=== PATIENT | male | born 1985 | race Caucasian/White ===

== ENCOUNTER 2023-11-10 19:22 | Emergency (ER) | payer BC, SELFPAY ==
[2023-11-10 19:29] VITALS: BP 156/94
[2023-11-10 20:16] LABS: % Basophils 0.6 % (0-2); % Eosinophils 1.7 % (0-6); % Immature Granulocytes 0.5 % (0-0.5); % Lymphocytes 20.6 % (20.5-51.1); % Neutrophils 69.6 % (42.2-75.2); Absolute Basophils 0.1 10^3/uL (0-0.2); Absolute Eosinophils 0.2 10^3/uL (0-0.7); Absolute Immature Granulocytes 0.1 10^3/uL (0-0.05); Absolute Lymphocytes 2.2 10^3/uL (1.2-3.4); Absolute Monocytes 0.8 10^3/uL (0.1-0.6); Absolute Neutrophils 7.5 10^3/uL (1.4-6.5); Hematocrit 41.7 % (39.0-52.0); Hemoglobin 15.4 g/dL (13.0-18.0); Mean Corp Hgb Conc. 36.9 g/dL (33.0-37.0); Mean Corpuscular Hgb 31.7 pg (27.0-31.0); Mean Corpuscular Volume 85.8 fL (80.0-94.0); Mean Platelet Volume 9.9 fL (7.4-10.4); Nucleated Red Blood Cells % 0 % (-); Platelet Count 208 10^3/uL (130-400); Red Blood Cell Count 4.86 10^6/uL (4.70-6.10); Red Cell Dist. Width 12.6 % (11.5-14.5); White Blood Cell Count 10.7 10^3/uL (4.8-10.8)
[2023-11-10 20:36] LABS: ALT (SGPT) 45 U/L (0-50); AST (SGOT) 36 U/L (17-59); Albumin 4.8 g/dl (3.5-5.0); Alkaline Phosphatase 99 U/L (38-126); Blood Urea Nitrogen 15 mg/dl (9-20); Calcium 9.6 mg/dl (8.4-10.2); Carbon Dioxide 27 mmol/L (22-30); Chloride 101 mmol/L (98-107); Glucose 121 mg/dl (70-99); Potassium 3.8 mmol/L (3.5-5.1); Sodium 137 mmol/L (135-145); Total Bilirubin 0.9 mg/dl (0.2-1.3); Total Protein 7.4 g/dl (6.3-8.2); eGFR > 60.00
[2023-11-10] MEDS: TORADOL 15 MG IV (21:03)
[2023-11-10 21:38] LABS: Urine Albumin Negative (Neg - Trace); Urine Bilirubin Negative (Negative); Urine Character Clear (Clear); Urine Color Yellow; Urine Glucose Negative (Negative); Urine Ketone Negative (Negative); Urine Leukocyte Negative (Negative); Urine Nitrite Negative (Negative); Urine Occult Blood 3+ (Negative); Urine Urobilinogen Negative (Neg - 1+)
[2023-11-10 21:47] LABS: Urine Bacteria Few (Negative); Urine White Cell 0-2 /HPF (0-5)
--- NOTE | 2023-11-10 21:52 | EDRN ---
Patient reports pain is better, MICHELE Mccrary at bedside, waiting on CT
--- NOTE | 2023-11-10 21:55 | ED.GENMED ---
History of Present Illness
General
Chief Complaint: Flank Pain
Time Seen by Provider: 11/10/23 20:58
History of Present Illness
History of Present Illness:
37-year-old male with history of frequent kidney stones presents the emergency department for evaluation of left flank pain that began yesterday and gradually worsened throughout the day today. States he typically passes stones on his own without
medication assistance however pain was not resolving prompting to come to ER. Denies any fevers or chills. Has never required any interventions and he estimates that he has passed at least 50 kidney stones in his lifetime
Past History
Past History
ED Past Medical History: Hypercholesterolemia and Other (Kidney stone)
ED Past Surgical History: Urological
Social History
Tobacco: Non-smoker
Alcohol: Other
Personal: Single
Living: with family
Employment: Employed
Family History
Family History: Other (Noncontributory)
Review of Systems
Review of Systems
Allergies reviewed?: Yes
All Other Systems: ROS reviewed and negative except as documented in HPI and ROS
Phy Exam
Physical Exam
Physical Exam:
GEN: Well appearing, NAD, WDWN
HEENT: Oral mucosa moist, no scleral icterus
Cardiac: Regular rate
Lung: No respiratory distress, no tachypnea
Abdomen: Soft, nontender
MSK: No gross deformity or injuries
Skin: Good color, no pallor or jaundice, no rashes
Neuro: AO x3, moves all extremities freely
Psych: Calm, cooperative
Course
Orders/Labs/Results
Orders:
Orders
11/10/23 19:49
CMP [Comprehensive Metabolic Panel] Urgent
Complete Blood Count/With Diff Urgent
11/10/23 20:58
Ketorolac [Toradol] 15 mg .ROUTE .STK-MED ONE
Ketorolac [Toradol] 15 mg IV NOW STA
11/10/23 21:27
Urinalysis Urgent
Date Specimen was Collected: 11/10/23
Time Specimen was Collected: 19:35
Urine Microscopic Urgent
Date Specimen was Collected: 11/10/23
Time Specimen was Collected: 19:35
11/10/23 21:55
Tamsulosin [Flomax] 0.4 mg PO NOW STA
11/10/23 21:58
Diclofenac [Voltaren] 75 mg PO NOW STA
Abnormal Lab Results
11/10/23 11/10/23
19:49 21:27
MCH 31.7 H pg
(27.0-31.0)
Abs Immat Gran (auto) 0.1 H 10^3/uL
(0-0.05)
Absolute Neuts (auto) 7.5 H 10^3/uL
(1.4-6.5)
Absolute Monos (auto) 0.8 H 10^3/uL
(0.1-0.6)
Glucose 121 H mg/dl
(70-99)
Urine Occult Blood 3+ A
(Negative)
Urine RBC 7-10 A /HPF
(0-2)
Urine Bacteria Few A
(Negative)
11/10/23 19:49
11/10/23 19:49
Vital Signs
Initial and Last Documented VS:
Initial Vital Signs
Temp Pulse Resp BP Pulse Ox
97.9 F 94 18 156/94 96
11/10/23 19:29 11/10/23 19:29 11/10/23 19:29 11/10/23 19:29 11/10/23 19:29
Last Documented Vital Signs
Temp Pulse Resp BP Pulse Ox
97.9 F 94 18 156/94 96
11/10/23 19:29 11/10/23 19:29 11/10/23 19:29 11/10/23 19:29 11/10/23 19:29
MDM/Problems Addressed
MDM/Problems Addressed:
Discussed the options with the patient including imaging versus withholding imaging given that he has never required intervention and appears quite comfortable after 1 dose of Toradol. He is comfortable with avoiding the radiation at this time
which I find to be reasonable given his normal labs. Urinalysis is not consistent with infection. Will treat supportively with NSAIDs and Flomax, discussed ED return parameters
*Critical Care Note
Total Time (30-74mins, 75-104mins- exclusive of procedures): Not Applicable
ED Attending Note
-
Portions of this chart may have been created with voice recognition software.� Occasional wrong word or��sound alike� substitutions may have occurred due to the inherent limitations of voice recognition software.
Discharge Plan
Departure
Patient Disposition: Home (Routine Discharge)
Date of Disposition: 11/10/23
Time of Disposition: 21:55
Patient with high blood pressure during this ER visit?: No
Discharge Problem:
Calculus of left kidney
Instructions: Kidney Stones (DC)
Prescriptions:
New
tamsulosin [Flomax] 0.4 mg capsule
0.4 mg PO HS Qty: 20 0RF
ketorolac 10 mg tablet
10 mg PO Q8H PRN (Reason: Pain) Qty: 15 0RF
Rx Instructions:
maximum total duration of 5 days from all oral, intranasal, or parenteral formulations
No Action
docosahexaenoic acid-epa 1 CAP capsule
1 cap PO DAILY
Niacin
1 tab PO DAILY
tamsulosin 0.4 MG capsule
0.4 mg PO DAILY Qty: 7 0RF
tamsulosin 0.4 MG capsule
0.4 mg PO DAILY Qty: 7 0RF
ondansetron 4 MG tablet,disintegrating
4 mg PO TIDPRN PRN (Reason: nausea/vomiting) Qty: 12 0RF
hydrocodone-acetaminophen [Vicodin] 1 EACH tablet
1 ea PO Q6HPRN PRN (Reason: Pain) Qty: 12 0RF
hydrocodone-acetaminophen 1 TABLET tablet
1 tab PO Q4HPRN PRN (Reason: breakthrough pain) Qty: 10 0RF
tamsulosin 0.4 MG capsule
0.4 mg PO DAILY Qty: 7 0RF
diclofenac sodium 75 MG tablet,delayed release (DR/EC)
75 mg PO BID Qty: 20 0RF
hydrocodone-acetaminophen [[place]] 1 EACH tablet
1 ea PO Q4HPRN PRN (Reason: pain) Qty: 12 0RF
tamsulosin 0.4 MG capsule
0.4 mg PO DAILY Qty: 10 0RF
Referrals:
José Antonio Caldera MD [Family Provider] -
Activity Restrictions/Additional Instructions:
Return if symptoms worsen or you develop a fever
Interventions
Interventions:
*Risk Screen - Suicide Last Done: 11/10/23 19:29
*General Assessment Last Done: 11/10/23 22:05
*Neglect/Abuse Screening Last Done: 11/10/23 19:29
ED- Fall Risk Assessment Last Done: 11/10/23 20:50
*ED COVID-19 Vaccine History Last Done: 11/10/23 22:05
*Nursing Disposition Last Done: 11/10/23 22:05
XO-Ulpunu-Mzjmpktcyk Assessment Last Done: 11/10/23 20:50
ED-Male Genitourinary Assessment Last Done: 11/10/23 20:50
Discharge Date and Time
Discharge Date/Time: 11/10/23 22:05
Print Language: PERSIAN
[2023-11-10] MEDS: FLOMAX 0.4 MG PO (21:59)
[2023-11-10] MEDS: VOLTAREN 75 MG PO (22:02)
== END 2023-11-10 22:05 | disposition home or self-care (01) ==
LOC: EMR 19:22
PROVIDERS: Student in an Organized Health Care Education/Training Program; EMERGENCY PHYSICIAN Emergency Medicine; FAMILY PHYSICIAN Family Medicine
DX: N20.0 Calculus of kidney (principal); E78.00 Pure hypercholesterolemia, unspecified; Z87.442 Personal history of urinary calculi; Z91.048 Other nonmedicinal substance allergy status
CPT/HCPCS: 99284; 96374; 80053; 81003; 81015; 85025

== ENCOUNTER 2024-08-01 00:31 | Emergency (ER) | payer BC, SELFPAY ==
[2024-08-01 00:34] VITALS: BP 158/64
--- NOTE | 2024-08-01 00:54 | EDRN ---
Pt says he has a kidney stone on R stone 'I've had like 100 and some.' Pain started 1.5 hours ago. No pain medications taken prior to arrival. Nausea and vomited '4,5 or 10 times.' No urinary symptoms. Chills, no fever. No cp, sob. Pt also
has pain R side abdomen.
--- NOTE | 2024-08-01 01:04 | EDRN ---
Pt bent over in pain, unable to sit on stretcher. Raised stretcher so pt can lie across it while standing during which time IV was inserted. Pt asked that stretcher remain elevated so he can rest on it as is. Pt last had a kidney stones 2 months
ago which he passed on his own, says he has a collection of them in a jar at home. First kidney stone at age 18.
[2024-08-01] MEDS: ZOFRAN 4 MG IV (01:11)
[2024-08-01] MEDS: TORADOL 15 MG IV (01:13)
[2024-08-01 01:15] LABS: % Basophils 0.5 % (0-2); % Eosinophils 0.4 % (0-6); % Immature Granulocytes 0.3 % (0-0.5); % Lymphocytes 16.5 % (20.5-51.1); % Monocytes 4.7 % (1.7-9.3); % Neutrophils 77.6 % (42.2-75.2); Absolute Basophils 0.1 10^3/uL (0-0.2); Absolute Eosinophils 0.1 10^3/uL (0-0.7); Absolute Immature Granulocytes 0.1 10^3/uL (0-0.05); Absolute Lymphocytes 2.5 10^3/uL (1.2-3.4); Absolute Monocytes 0.7 10^3/uL (0.1-0.6); Absolute Neutrophils 11.6 10^3/uL (1.4-6.5); Hematocrit 44.8 % (39.0-52.0); Mean Corp Hgb Conc. 35.7 g/dL (33.0-37.0); Mean Corpuscular Hgb 30.8 pg (27.0-31.0); Mean Corpuscular Volume 86.2 fL (80.0-94.0); Mean Platelet Volume 9.6 fL (7.4-10.4); Nucleated Red Blood Cells % 0 % (-); Platelet Count 201 10^3/uL (130-400); Red Cell Dist. Width 12.2 % (11.5-14.5)
[2024-08-01] MEDS: DILAUDID 0.5 MG IV (01:15)
[2024-08-01 01:24] LABS: ALT (SGPT) 78 U/L (0-50); AST (SGOT) 48 U/L (17-59); Albumin 4.8 g/dl (3.5-5.0); Alkaline Phosphatase 119 U/L (38-126); Blood Urea Nitrogen 15 mg/dl (9-20); Calcium 9.6 mg/dl (8.4-10.2); Carbon Dioxide 23 mmol/L (22-30); Chloride 104 mmol/L (98-107); Glucose 159 mg/dl (70-99); Potassium 4.3 mmol/L (3.5-5.1); Sodium 140 mmol/L (135-145); Total Bilirubin 0.6 mg/dl (0.2-1.3); Total Protein 7.7 g/dl (6.3-8.2); eGFR > 60.00
[2024-08-01 01:40] VITALS: BMI 26.5
--- NOTE | 2024-08-01 01:42 | EDRN ---
Pt able to lie on stretcher now, states he feels much better 'I don't feel anything' however he says his pain is 2/10. Pt agreeable to CT scan
--- NOTE | 2024-08-01 01:43 | ED.GENMED ---
History of Present Illness
General
Chief Complaint: Flank Pain
Source: patient
Exam Limitations: none
Time Seen by Provider: 08/01/24 01:41
History of Present Illness
History of Present Illness:
See MDM
Past History
Past History
ED Past Medical History: Hypercholesterolemia and Other (Kidney stone)
ED Past Surgical History: Urological
Social History
Tobacco: Non-smoker
Alcohol: Other
Personal: Single
Living: with family
Employment: Employed
Family History
Family History: Other (Noncontributory)
Phy Exam
Physical Exam
Physical Exam:
See MDM
Course
Orders/Labs/Results
Orders:
Orders
08/01/24 00:58
Complete Blood Count/With Diff Urgent
Comprehensive Metabolic Panel Urgent
08/01/24 01:08
Ondansetron Injectable [Zofran] 4 mg .ROUTE .STK-MED ONE
08/01/24 01:09
HYDROmorphone [Dilaudid] 0.5 mg .ROUTE .STK-MED ONE
Ketorolac [Toradol] 15 mg .ROUTE .STK-MED ONE
08/01/24 01:10
Ketorolac [Toradol] 15 mg IV NOW STA
Ondansetron Injectable [Zofran] 4 mg IV NOW STA
08/01/24 01:15
HYDROmorphone [Dilaudid] 0.5 mg IV NOW STA
08/01/24 01:[address] Abd/pel Without Iv Or Oral Urgent
Comment:
Reason For Exam: R flank pain - history kidney stone
08/01/24 03:16
Urinalysis Urgent
Date Specimen was Collected: 08/01/24
Time Specimen was Collected: 00:36
Urine Microscopic Urgent
Date Specimen was Collected: 08/01/24
Time Specimen was Collected: 00:36
Abnormal Lab Results
08/01/24 08/01/24
00:58 03:16
WBC 15.0 H 10^3/uL
(4.8-10.8)
Abs Immat Gran (auto) 0.1 H 10^3/uL
(0-0.05)
Absolute Neuts (auto) 11.6 H 10^3/uL
(1.4-6.5)
Absolute Monos (auto) 0.7 H 10^3/uL
(0.1-0.6)
Neutrophils % 77.6 H %
(42.2-75.2)
Lymphocytes % 16.5 L %
(20.5-51.1)
Glucose 159 H mg/dl
(70-99)
ALT 78 H U/L
(0-50)
Urine Occult Blood 4+ A
(Negative)
Ur Leukocyte Esterase 1+ A
(Negative)
Urine RBC >100 A /HPF
(0-2)
Urine Bacteria Few A
(Negative)
Urine Albumin 2+ A
(Neg - Trace)
08/01/24 00:58
08/01/24 00:58
Vital Signs
Initial and Last Documented VS:
Initial Vital Signs
Temp Pulse Resp BP Pulse Ox
97.6 F 60 24 158/64 97
08/01/24 00:34 08/01/24 00:34 08/01/24 00:34 08/01/24 00:34 08/01/24 00:34
Last Documented Vital Signs
Temp Pulse Resp BP Pulse Ox
97.6 F 71 14 111/71 95
08/01/24 00:34 08/01/24 02:08 08/01/24 02:08 08/01/24 02:08 08/01/24 02:08
MDM/Problems Addressed
Differential Diagnosis Includes:
HPI and MDM Narrative:
38-year-old male presenting with sudden onset of right flank pain. Patient states this feels like a kidney stone. He has a history of kidney stones that he is usually able to pass on his own. Patient started immediately on IV pain medicine which
seems to be helping. Will obtain CT
Physical exam
General: Uncomfortable, complaining of right flank pain
HEENT: protecting airway
Neck: appears supple
CV: No evidence of cyanosis
Resp: No accessory muscle use
Abd: Non-distended. Soft and nontender
Back: Right CVA tenderness
Extremities: No deformities
Neuro: alert
Psych: Normal affect
Skin: Intact
Problems Addressed including Acute and Chronic Conditions affecting care:
1. Right flank pain
Acuity: acute
Prognosis: stable
Details: Given his history, will obtain CT with concern for obstructive kidney stone
Updates
CT consistent with kidney stones. While in his room, he did pass 2 stones. Patient for much better. Urine negative for infection
Differential Diagnosis (but not limited to): Kidney stone, cholecystitis, colitis
Testing considered: Right upper quadrant ultrasound
Drug therapy (if applicable): OTC meds, please see d/c instruction regarding Rx drugs
Amount and/or Complexity of Data Reviewed
Clinical info obtained from: Patient
External data reviewed: N/A
Labs I independently reviewed (but not limited to): Mild leukocytosis was likely reactive
Radiology: The CT scan was personally and independently reviewed. In addition, official CT report reviewed.
Pulse Ox: not hypoxic
EKG independently reviewed: N/A
Manager Golf: N/A
Critical Care: N/A
Risk of Complication:
Social Determinants of health: Good social support
Discussed with other providers: N/A
Escalation of Care includes Admit/Obs: After being observed in the Emergency Department, pt stable for discharge.
Occasional wrong word or 'sound a like' substitutions may have occurred due to the inherent limitations of voice recognition software. Read the chart carefully and recognize, using context, where substitutions have occurred.
*Critical Care Note
Total Time (30-74mins, 75-104mins- exclusive of procedures): Not Applicable
ED Attending Note
-
Portions of this chart may have been created with voice recognition software.� Occasional wrong word or��sound alike� substitutions may have occurred due to the inherent limitations of voice recognition software.
Discharge Plan
Departure
Patient Disposition: Home (Routine Discharge)
Date of Disposition: 08/01/24
Time of Disposition: 03:43
Patient with high blood pressure during this ER visit?: No
Discharge Problem:
Kidney stone
Prescriptions:
No Action
No Current Medications
0
Referrals:
José Antonio Caldera MD [Family Provider] -
Activity Restrictions/Additional Instructions:
Please return for any worsening symptoms.
You may return at any time if you have further concerns.
Please follow up with your doctor at the first available appointment, preferably this week.
Thank you for choosing [facility].
Interventions
Interventions:
*Risk Screen - Suicide Last Done: 08/01/24 00:34
*General Assessment Last Done: 08/01/24 00:53
*Neglect/Abuse Screening Last Done: 08/01/24 00:34
*ED COVID-19 Vaccine History Last Done: 08/01/24 00:53
MK-Ucwadn-Selcypreuo Assessment Last Done: 08/01/24 01:06
ED-Male Genitourinary Assessment Last Done: 08/01/24 01:06
Discharge Date and Time
Print Language: CONGOLESE
[2024-08-01 02:08] VITALS: BP 111/71
[2024-08-01 03:26] LABS: Urine Albumin 2+ (Neg - Trace); Urine Bilirubin Negative (Negative); Urine Character Clear (Clear); Urine Color Yellow; Urine Glucose Negative (Negative); Urine Ketone Negative (Negative); Urine Leukocyte 1+ (Negative); Urine Nitrite Negative (Negative); Urine Occult Blood 4+ (Negative); Urine Specific Gravity 1.025 (<1.030); Urine Urobilinogen Negative (Neg - 1+)
[2024-08-01 03:34] LABS: Urine Hyaline Cast 0-2 /LPF (0-2)
[2024-08-01 03:35] LABS: Urine Bacteria Few (Negative); Urine Red Blood Cell >100 /HPF (0-2)
[2024-08-01 03:55] VITALS: BP 116/61
== END 2024-08-01 04:01 | disposition home or self-care (01) ==
LOC: EMR 00:31
PROVIDERS: EMERGENCY PHYSICIAN Student in an Organized Health Care Education/Training Program; FAMILY PHYSICIAN Family Medicine
DX: N20.0 Calculus of kidney (principal); E78.00 Pure hypercholesterolemia, unspecified; Z87.442 Personal history of urinary calculi; Z91.048 Other nonmedicinal substance allergy status
CPT/HCPCS: 99284; 96374; 96375 ×2; 74176; 80053; 81003; 81015; 85025